=== PATIENT | male | born 1965 | race Caucasian/White ===

== ENCOUNTER 2017-10-09 19:41 | Emergency (ER) | payer OTHER ==
[2017-10-09] MEDS ORDERED: SODIUM CHLORIDE 0.9% 1000ML 1,000 ML IV ONE (19:56)
[2017-10-09] MEDS: SODIUM CHLORIDE 0.9% 1000ML 1,000 ML IV ONE ×2 (20:03→22:50)
[2017-10-09 20:49] LABS: BASOPHILS % (AUTO) 2 % (0-3); EOSINOPHILS % (AUTO) 8 % (0-9); HEMATOCRIT 44 % (39-53); MEAN CORPUSCULAR HGB CONC 36.4 gm/dl (32.0-36.0); MEAN CORPUSCULAR VOLUME 87 fL (80-100); MONOCYTES % (AUTO) 9.3 % (0-12); NEUTROPHILS % (AUTO) 60.5 % (37-80)
[2017-10-09] MEDS ORDERED: INSULIN HUMAN REGULAR 100 U/ML SOL IV ONE (21:01)
[2017-10-09 21:02] LABS: ALBUMIN 3.9 gm/dl (3.4-5.0); ALT 22 IU/L (14-63); CALCIUM 8.5 mg/dl (8.5-10.1); GLOM FILT RATE 69 mL/min (>60); SODIUM 131 mMol/L (136-145); THYROID STIMULATING HORMONE 0.671 uIU/ml (0.358-3.740)
[2017-10-09] MEDS ORDERED: INSULIN HUMAN REGULAR 100 U/ML SOL ONE (21:48)
[2017-10-09 21:51] LABS: APPEARANCE,URINE Clear; BILIRUBIN,URINE NEGATIVE (NEGATIVE); COLOR,URINE Yellow; GLUCOSE, URINE (UA) 2+ (NEGATIVE); KETONES,URINE NEGATIVE (NEGATIVE); LEUKOCYTE ESTERASE ,URINE NEGATIVE (NEGATIVE); NITRATE,URINE NEGATIVE (NEGATIVE); OCCULT BLOOD,URINE NEGATIVE (NEG-TRACE); UROBILINOGEN,URINE 0.2 (0.2-1.0 EU)
[2017-10-09 22:18] LABS: AMPHETAMINES NEGATIVE (NEGATIVE); METHADONE NEGATIVE (NEGATIVE); OPIATES(OP13) NEGATIVE (NEGATIVE); OXYCODONE(OXY) NEGATIVE (NEGATIVE); PROPOXYPHENE(PPX) NEGATIVE (NEGATIVE); RBC,URINE NEG (0-3AV/HPF); TRICYCLIC ANTIDEPRESSANTS NEGATIVE (NEGATIVE); WBC,URINE 0-1 (0-5AV/HPF)
[2017-10-09] MEDS ORDERED: METOPROLOL TARTRATE 5 MG/5 ML SOL IV ONE ×2 (23:09→23:52)
[2017-10-10] MEDS ORDERED: METOPROLOL TARTRATE 25 MG TAB PO ONE (00:09)
[2017-10-10] MEDS ORDERED: METOPROLOL TARTRATE 25 MG TAB ONE (00:18)
[2017-10-10 01:58] VITALS: BP 141/95; PULSE 86; RESP 16; O2SAT 98
[2017-10-10 02:13] VITALS: TEMP 98
== END 2017-10-10 00:50 | disposition home or self-care (01) | DRG 639 ==
LOC: ED 19:41
DX: E10.65 Type 1 diabetes mellitus with hyperglycemia (principal); E86.0 Dehydration; R00.2 Palpitations; I10 Essential (primary) hypertension; Z79.4 Long term (current) use of insulin
CPT/HCPCS: 71045; 80053; 80305; 81001; 82962; 83735; 84443; 84484; 85025; 87040; 93005; 96365; 96366; 96374; 96375; 99284; 99285; J1815; A9270-GY; J3490

== ENCOUNTER 2018-05-28 07:00 | Emergency (ER) | payer OTHER ==
[2018-05-28] MEDS ORDERED: DEXTROSE 50% 1 VIAL SOL IV ONE ×6 (07:05→07:50)
[2018-05-28] MEDS ORDERED: DEXTROSE/SALINE 0.9% 1,000 ML IV ONE (07:10)
[2018-05-28] MEDS ORDERED: SODIUM CHLORIDE 0.9% FLUSH 10 ML SOL IV PRN (07:15)
[2018-05-28 07:35] LABS: CALCIUM 8.6 mg/dl (8.5-10.1); CREATININE 1.03 mg/dl (0.80-1.30); POTASSIUM 3.2 mMol/L (3.5-5.1)
[2018-05-28 07:37] LABS: BASOPHILS % (AUTO) 1 % (0-3); EOSINOPHILS % (AUTO) 9 % (0-9); HEMATOCRIT 49 % (39-53); HEMOGLOBIN 16.5 gm/dl (13.5-17.7); LYMPHOCYTES % (AUTO) 15.1 % (10-50); MEAN CORPUSCULAR HEMOGLOBIN 31.4 pg (27.0-32.0); MEAN CORPUSCULAR HGB CONC 33.9 gm/dl (32.0-36.0); MEAN CORPUSCULAR VOLUME 93 fL (80-100); MONOCYTES % (AUTO) 10.1 % (0-12); NEUTROPHILS % (AUTO) 64.2 % (37-80)
[2018-05-28 07:44] VITALS: TEMP 96
[2018-05-28 09:15] VITALS: BP 135/78; PULSE 74; RESP 19; O2SAT 94
== END 2018-05-28 09:10 | disposition home or self-care (01) | DRG 639 ==
LOC: ED 07:00
DX: E10.649 Type 1 diabetes mellitus with hypoglycemia without coma (principal)
CPT/HCPCS: 36415; 80048; 82962; 85025; 96365; 96366; 96374; 99285; 99291